=== PATIENT | female | born 1995 | race Caucasian/White ===

== ENCOUNTER 2016-10-10 02:01 | Emergency (ER) | payer OTHER ==
[2016-10-10] MEDS ORDERED: ONDANSETRON ODT 4 MG TABLET ONE (02:44)
[2016-10-10] MEDS: ONDANSETRON ODT 4 MG TABLET TL STA (02:45)
--- NOTE | 2016-10-10 02:47 | ED Physician Documentation ---
PD HPI NVD - Stated complaint Stated Complaint: VOMITING - Chief complaint Chief Complaint: Abd Pain - History obtained from History obtained from: Patient - History of Present Illness Timing - onset: Enter time (2330), Last night Timing - duration: Hours Timing - details: Gradual onset, Still present Associated symptoms: No: Fever, Abdominal pain, Chest pain, Hematemesis, Melena Contributing factors: Sick contact (girlfreind sick with simlar for several days ) Improved by: Vomiting Similar symptoms before: Has not had sx before Recently seen: Not recently seen - Additonal information Additional information: 20 y/o female has been caring for her girlfriend with vomiting and diarrhea for the past 4 days and tonight she became ill herself with vomiting and diarrhea. She has acute onset of symptoms tonight. Review of Systems Constitutional: reports: Myalgias, Fatigue, Sweats. denies: Fever Eyes: denies: Decreased vision Ears: denies: Ear pain Nose: denies: Congestion Throat: denies: Sore throat Cardiac: denies: Chest pain / pressure, Palpitations Respiratory: denies: Dyspnea, Cough GI: reports: Abdominal Pain, Nausea, Vomiting, Diarrhea : denies: Dysuria, Frequency Skin: denies: Rash Musculoskeletal: denies: Neck pain, Back pain, Extremity pain PD PAST MEDICAL HISTORY - Past Medical History Past Medical History: Yes Psych: Depression, Anxiety - Past Surgical History Past Surgical History: No - Present Medications Home Medications: Ambulatory Orders Medication Instructions Recorded Confirmed Ondansetron Odt [Zofran] 4 mg TL Q6H PRN #10 tablet 10/10/16 - Allergies Allergies/Adverse Reactions: Allergies Allergy/AdvReac Type Severity Reaction Status Date / Time No Known Drug Allergies Allergy Verified 02/22/15 10:10 - Social History Does the pt smoke?: Yes Smoking Status: Current every day smoker Does the pt drink ETOH?: Yes Does the pt have substance abuse?: Yes - Immunizations Immunizations are current?: Yes Immunizations: TDAP current <10years PD ED PE NORMAL - Vitals Vital signs reviewed: Yes (tachy and hypertensive ) - General General: No acute distress, Well developed/nourished - HEENT HEENT: Atraumatic, PERRL, EOMI - Neck Neck: Supple, no meningeal sign, No bony TTP - Cardiac Cardiac: No murmur, Other (tachy to 100) - Respiratory Respiratory: No respiratory distress, Clear bilaterally - Abdomen Abdomen: Soft, Non tender - Back Back: No CVA TTP, No spinal TTP - Derm Derm: Normal color, Warm and dry, No rash - Extremities Extremities: No deformity, No edema - Neuro Neuro: No motor deficit, No sensory deficit - Psych Psych: Normal mood, Normal affect Results - Vitals Vitals: Vital Signs - 24 hr 10/10/16 10/10/16 02:04 03:46 Temperature 36.9 C Heart Rate 107 H 88 Respiratory 16 17 Rate Blood Pressure 137/82 H 122/62 O2 Saturation 98 97 Oxygen O2 Source Room air - Labs Labs: Laboratory Tests 10/10/16 03:20 Urine Color YELLOW Urine Clarity CLEAR Urine pH 6.0 Ur Specific [place] <=1.005 Urine Protein NEGATIVE Urine Glucose (UA) NEGATIVE Urine Ketones NEGATIVE Urine Occult Blood SMALL H Urine Nitrite NEGATIVE Urine Bilirubin NEGATIVE Urine Urobilinogen 0.2 (NORMAL) Ur Leukocyte Esterase NEGATIVE Urine RBC None Seen Urine WBC 0-3 Ur Squamous Epith Cells NONE SEEN Urine Bacteria None Seen Ur Microscopic Review INDICATED Urine Culture Comments NOT INDICATED Urine HCG, Qual NEGATIVE Procedures - IVC sono (time) 0230 Bedside IVC sono: IVC measures (cm) (1.56), Euvolemia PD MEDICAL DECISION MAKING - ED course Complexity details: reviewed old records, reviewed results, re-evaluated patient , considered differential, d/w patient ED course: 20 y/o female with acute onset of vomiting and diarrhea after taking care of another person with similar symptoms does not appear dehydrated acutely and she is given TL zofran with improvement. Departure - Departure Disposition: 01 Home, Self Care Clinical Impression: Gastroenteritis Instructions: ED Gastroenteritis Viral Follow-Up: [facility] [Provider Group] Prescriptions: Ondansetron Odt [Zofran] 4 mg TL Q6H PRN #10 tablet PRN Reason: Nausea / Vomiting
[2016-10-10 03:26] LABS: BILIRUBIN,URINE NEGATIVE (NEGATIVE)
[2016-10-10] MEDS ORDERED: ONDANSETRON ODT 4 MG Prepack 2 TL ONE (03:43)
[2016-10-10 03:47] VITALS: BP 122/62
[2016-10-10 03:51] LABS: HCG UR QUAL NEGATIVE; UA w/ MICROSCOPIC CHARGE YES; UR CULTURE IF IND NOT INDICATED; WBC,URINE 0-3 /HPF (0-5)
[2016-10-10] MEDS: ONDANSETRON ODT 4 MG Prepack 2 TL PRN (03:53)
== END 2016-10-10 04:01 | disposition home or self-care (01) ==
LOC: ED 02:01
DX: K52.9 Noninfective gastroenteritis and colitis, unspecified (principal); F17.200 Nicotine dependence, unspecified, uncomplicated
CPT/HCPCS: 81001; 81003; 81025; 87086; 99283

== ENCOUNTER 2016-10-14 16:43 | Emergency (ER) | payer OTHER | END 2016-10-14 17:37 | disposition left against medical advice (07) | DX: Z53.21 Procedure and treatment not carried out due to patient leaving prior to being seen by health care provider (principal) ==

== ENCOUNTER 2016-10-26 05:09 | Emergency (ER) | payer OTHER | END 2016-10-26 15:55 | disposition home or self-care (01) | DX: F32.9 Major depressive disorder, single episode, unspecified (principal); R45.851 Suicidal ideations; F17.200 Nicotine dependence, unspecified, uncomplicated ==

== ENCOUNTER 2016-12-28 04:56 | Emergency (ER) | payer OTHER ==
[2016-12-28] MEDS ORDERED: MECLIZINE 12.5 MG TABLET PO STA (05:22)
[2016-12-28] MEDS ORDERED: ONDANSETRON 4 MG/2 ML VIAL IVP STA (05:22)
[2016-12-28] MEDS ORDERED: SODIUM CHLORIDE 0.9% 1,000 ML IV ONE ×2 (05:22→06:02)
[2016-12-28] MEDS ORDERED: ONDANSETRON 4 MG/2 ML VIAL ONE (05:23)
[2016-12-28] MEDS ORDERED: MECLIZINE 12.5 MG TABLET PO ONE (05:23)
--- NOTE | 2016-12-28 05:26 | ED Physician Documentation ---
PD HPI SYNCOPE - Stated complaint Stated Complaint: DIZZINESS - Chief complaint Chief Complaint: General - History obtained from History obtained from: Patient, Friend - History of Present Illness Timing - onset: How many hours ago (1-2 hours ago, felt lightheaded and fainted as she got up from lying down. Still feeling dizzy with head movement and lightheaded when stands up. Had been drinking alcohol and did cocaine last evening. Had not had anything to eat nor drink for the evening otherwise.) Duration: Minutes (friend says the patient was out for less than a minute ( more likely 20-30 seconds) and was able to talk when awoke. No noted injury to the head.) Preceding symptoms: Headache (mild general), Light headed, Generalized weakness. No: Palpitations, Diaphoresis, Dyspnea, Abdominal pain Associated symptoms: No: Seizure, Incontinant of urine, Chest pain, Abdominal pain Contributing factors: Just stood up, Other (had been drinking alcohol and using cocaine this past evening. Not had anything to eat nor drink otherwise.) Injury occurred: No: Head injury, Neck injury, Bit tongue Similar symptoms before: Has not had sx before Recently seen: Not recently seen Review of Systems Constitutional: denies: Fever, Chills Eyes: denies: Loss of vision, Photophobia Nose: denies: Rhinorrhea / runny nose, Congestion Throat: denies: Sore throat Respiratory: denies: Cough GI: denies: Abdominal Pain, Vomiting, Diarrhea : denies: Dysuria, Frequency Skin: denies: Abrasion (s), Laceration (s) Musculoskeletal: denies: Neck pain, Back pain Neurologic: denies: Focal weakness, Numbness Psychiatric: denies: Depressed Endocrine: denies: Weight loss Immunocompromised: denies: Immunocompromised PD PAST MEDICAL HISTORY - Past Medical History Past Medical History: Yes Cardiovascular: None Respiratory: None Neuro: None Endocrine/Autoimmune: None Psych: Depression, Anxiety - Past Surgical History Past Surgical History: No - Present Medications Home Medications: Ambulatory Orders Medication Instructions Recorded Confirmed Ondansetron Odt [Zofran] 4 mg TL Q6H PRN #10 tablet 10/10/16 - Allergies Allergies/Adverse Reactions: Allergies Allergy/AdvReac Type Severity Reaction Status Date / Time No Known Drug Allergies Allergy Verified 12/28/16 05:07 - Social History Does the pt smoke?: Yes Smoking Status: Current every day smoker Does the pt drink ETOH?: Yes Does the pt have substance abuse?: Yes - Immunizations Immunizations are current?: Yes Immunizations: TDAP current <10years - POLST Patient has POLST: No PD ED PE NORMAL - Vitals Vital signs reviewed: Yes - General General: Alert and oriented X 3, No acute distress, Well developed/nourished - HEENT HEENT: PERRL (mild nystagmus to sides on gaze. ), Ears normal, Pharynx benign. No: Moist mucous membranes - Neck Neck: Supple, no meningeal sign, No adenopathy - Cardiac Cardiac: RRR, No murmur - Respiratory Respiratory: Clear bilaterally - Back Back: No CVA TTP - Derm Derm: Normal color, Warm and dry - Extremities Extremities: No tenderness to palpate, Normal ROM s pain - Neuro Neuro: Alert and oriented X 3, ride operator 2-12 intact, No motor deficit, No sensory deficit, Normal speech - Psych Psych: Normal mood, Normal affect Results - Vitals Vitals: Vital Signs - 24 hr 12/28/16 05:03 Temperature 36.7 C Heart Rate 55 L Respiratory 17 Rate Blood Pressure 138/71 H O2 Saturation 97 Oxygen O2 Source Room air - Labs Labs: Laboratory Tests 12/28/16 05:24 POC Whole Bld Glucose 96 PD MEDICAL DECISION MAKING - ED course Complexity details: re-evaluated patient (Improved lightheadedness with 2 liters fluid. Less dizzy but still some after Meclizine. She was able to rest and sleep short while. ), considered differential (think most likely toxic effect of alcohol/cocaine with underhydration, so will give IV fluids and some meds for vertigo. ), d/w patient Departure - Departure Disposition: 01 Home, Self Care Clinical Impression: Dehydration, Dizziness Syncope Qualifiers: Syncope type: unspecified Qualified Code(s): R55 - Syncope and collapse Alcoholic intoxication Qualifiers: Complication of substance-induced condition: uncomplicated Qualified Code(s): F10.120 - Alcohol abuse with intoxication, uncomplicated Condition: Stable Record reviewed to determine appropriate education?: Yes Instructions: ED Dizziness Syncope Fainting W Pre Comments: Simple bland food today and adequate water/fluids for hydration. Get up slowly and move slowly this morning. I presume the dizziness and lightheadedness will improve slowly through the day. Recheck if not better into tomorrow. Samenol or Ibuprofen as needed for pains/headache. Forms: Activity restrictions
[2016-12-28 06:41] VITALS: BP 116/72
== END 2016-12-28 06:41 | disposition home or self-care (01) ==
LOC: ED 04:56
DX: E86.0 Dehydration (principal); R42 Dizziness and giddiness; R55 Syncope and collapse; F10.129 Alcohol abuse with intoxication, unspecified; F17.200 Nicotine dependence, unspecified, uncomplicated
CPT/HCPCS: 96361; 96374; 99283; A9270

== ENCOUNTER 2017-02-12 01:48 | Outpatient (CLI) | payer SELFPAY | END 2017-02-12 01:49 | disposition critical access hospital (66) | LOC: EMS 01:48 | PROVIDERS: ATTEND Surgery | DX: R40.4 Transient alteration of awareness (principal) | CPT/HCPCS: A0425; A0427 ==

== ENCOUNTER 2017-02-12 02:05 | Emergency (ER) | payer MEDICAID, OTHER ==
--- NOTE | 2017-02-12 02:18 | ED Physician Documentation ---
PD HPI ALTERED MENTAL STATUS - Stated complaint Stated Complaint: ALOC - Chief complaint Chief Complaint: Neuro - History obtained from History obtained from: Patient, EMS - History of Present Illness Timing - onset: Today Timing - duration: Other (unsure of duration - she was drinking and taking drugs with friend, who gave her some "Liliana". Patient apparently passed out and was not rousing, so friend called EMS. She was rousable to them but somewhat confused. Improved enroute to ER, with rousable and able to talk to Medics.) Timing - details: Abrupt onset Quality / character: Less responsive, Unresponsive Associated symptoms: No: Headache, NVD, Seizure activity Contributing factors: Intoxicated, Substance abuse. No: Diabetic, Recent illness, Recent injury Basline status: Alert and oriented X 3, Ambulatory Treatment SHOT FI[employer]MAN: Accucheck Similar symptoms before: Diagnosis (history of drug abuse and had been to ED in November for alcohol and cocaine use with altered mentation. Some prior visits before that similarly.) Review of Systems Throat: denies: Sore throat Cardiac: denies: Chest pain / pressure Respiratory: denies: Dyspnea, Cough GI: denies: Abdominal Pain, Vomiting, Diarrhea Skin: denies: Abrasion (s), Laceration (s) Neurologic: denies: Headache, Head injury Psychiatric: reports: Depressed, Anxiety. denies: Suicidal PD PAST MEDICAL HISTORY - Past Medical History Cardiovascular: None Respiratory: None Neuro: None Endocrine/Autoimmune: None Psych: Depression, Anxiety - Past Surgical History Past Surgical History: No - Present Medications Home Medications: Ambulatory Orders Medication Instructions Recorded Confirmed Ondansetron Odt [Zofran] 4 mg TL Q6H PRN #10 tablet 10/10/16 - Allergies Allergies/Adverse Reactions: Allergies Allergy/AdvReac Type Severity Reaction Status Date / Time No Known Drug Allergies Allergy Verified 12/28/16 05:07 - Social History Does the pt smoke?: Yes Smoking Status: Current every day smoker Does the pt drink ETOH?: Yes Does the pt have substance abuse?: Yes - Immunizations Immunizations are current?: Yes Immunizations: TDAP current <10years - POLST Patient has POLST: No PD ED PE NORMAL - Vitals Vital signs reviewed: Yes - General General: No acute distress, Well developed/nourished, Other (slightly somnolent but rouses to tactile. Able to answer questions. ) - HEENT HEENT: Atraumatic, Pharynx benign - Neck Neck: Supple, no meningeal sign, No adenopathy - Cardiac Cardiac: RRR, No murmur - Respiratory Respiratory: Clear bilaterally - Abdomen Abdomen: Soft, Non tender - Derm Derm: Normal color, Warm and dry - Neuro Neuro: Alert and oriented X 3, No motor deficit, Normal speech - Psych Psych: Normal mood, Normal affect Results - Vitals Vitals: Vital Signs - 24 hr 02/12/17 02/12/17 02:06 03:29 Temperature 36.6 C Heart Rate 106 H 98 Respiratory 16 20 Rate Blood Pressure 134/78 H 120/77 O2 Saturation 95 96 Oxygen O2 Source Room air - Labs Labs: Laboratory Tests 02/12/17 02/12/17 02:24 03:00 Sodium 143 Potassium 3.8 Chloride 113 H Carbon Dioxide 23 Anion Gap 7.0 BUN 8 Creatinine 0.7 Estimated GFR (MDRD) 104 Glucose 146 H Calcium 8.1 L Total Bilirubin 0.3 AST 19 ALT 14 Alkaline Phosphatase 44 Total Protein 7.2 Albumin 4.4 Globulin 2.8 Albumin/Globulin Ratio 1.6 Lipase 18 L Urine Opiates Screen NEGATIVE Ur Oxycodone Screen NEGATIVE Urine Methadone Screen NEGATIVE Ur Propoxyphene Screen NEGATIVE Ur Barbiturates Screen NEGATIVE Ur Tricyclics Screen NEGATIVE Ur Phencyclidine Scrn NEGATIVE Ur Amphetamine Screen POSITIVE H U Methamphetamines Scrn POSITIVE H U Benzodiazepines Scrn NEGATIVE Urine Cocaine Screen POSITIVE H U Cannabinoids Screen NEGATIVE Ethyl Alcohol 196.7 PD MEDICAL DECISION MAKING - ED course Complexity details: re-evaluated patient, considered differential (She is rousable easily and conversant on arrival to ED. Watched here for awhile to ensure not getting more altered. She feels better and is able to walk to bathroom. She is calling parents or trying to get a ride home. ), d/w patient Departure - Departure Disposition: 01 Home, Self Care Clinical Impression: Drug abuse, Drug side effects Alcoholic intoxication Qualifiers: Complication of substance-induced condition: uncomplicated Qualified Code(s): F10.120 - Alcohol abuse with intoxication, uncomplicated Condition: Stable Record reviewed to determine appropriate education?: Yes Instructions: ED Drug Abuse General, ED Alcohol Intoxication Comments: Avoid drugs and excess alcohol. Drink lots of fluids the next few days. Tylenol or Ibuprofen as needed for pains. Discharge Date/Time: 02/12/17 04:13
[2017-02-12] MEDS ORDERED: SODIUM CHLORIDE 0.9% 1,000 ML IV ONE (02:23)
[2017-02-12 02:54] LABS: ALBUMIN/GLOBULIN RATIO 1.6 (1.0-2.2); BILIRUBIN,TOTAL 0.3 mg/dL (0.2-1.0); CALCIUM 8.1 mg/dL (8.5-10.3); CREATININE 0.7 mg/dL (0.4-1.0); POTASSIUM 3.8 mmol/L (3.5-5.0); TOTAL PROTEIN 7.2 g/dL (6.7-8.2)
[2017-02-12 03:29] VITALS: BP 120/77
== END 2017-02-12 04:13 | disposition home or self-care (01) ==
LOC: EDUNIT# → ED 02:05
DX: F19.10 Other psychoactive substance abuse, uncomplicated (principal); T50.905A Adverse effect of unspecified drugs, medicaments and biological substances, initial encounter; F10.120 Alcohol abuse with intoxication, uncomplicated; F17.200 Nicotine dependence, unspecified, uncomplicated
CPT/HCPCS: 36415; 80053; 80306; 80320; 83690; 99283; 99284

== ENCOUNTER 2017-04-05 09:01 | Outpatient (CLI) | payer MEDICAID | END 2017-04-05 09:02 | disposition critical access hospital (66) | LOC: EMS 09:01 | PROVIDERS: ATTEND Surgery | DX: S61.512A Laceration without foreign body of left wrist, initial encounter (principal); X78.9XXA Intentional self-harm by unspecified sharp object, initial encounter | CPT/HCPCS: A0425; A0429 ==

== ENCOUNTER 2017-04-05 09:17 | Emergency (ER) | payer MEDICAID ==
[2017-04-05 09:53] LABS: BILIRUBIN,URINE NEGATIVE (NEGATIVE)
[2017-04-05 10:01] LABS: HCT - HEMATOCRIT 38.7 % (37.0-47.0); HGB - HEMOGLOBIN 13.5 g/dL (12.0-16.0); MEAN CORPUSCULAR HEMOGLOBIN 32.6 pg (27.0-31.0); MEAN CORPUSCULAR HGB CONC 34.8 g/dL (32.0-36.0); MEAN CORPUSCULAR VOLUME 93.6 fL (81.0-99.0); MEAN PLATELET VOLUME 6.9 fL (7.9-10.8); RED BLOOD COUNT 4.14 10^6/uL (4.20-5.40)
[2017-04-05 10:21] LABS: ALBUMIN/GLOBULIN RATIO 1.5 (1.0-2.2); BILIRUBIN,TOTAL 0.5 mg/dL (0.2-1.0); BUN - BLOOD UREA NITROGEN 8 mg/dL (6-20); CALCIUM 9.2 mg/dL (8.5-10.3); CARBON DIOXIDE - CO2 25 mmol/L (21-32); CHLORIDE 106 mmol/L (101-111); CREATININE 0.8 mg/dL (0.4-1.0); GFR - MDRD 89 (>89); GLUCOSE 113 mg/dL (70-100); LIPASE 19 U/L (22-51); POTASSIUM 3.8 mmol/L (3.5-5.0); SALICYLATE < 6.0 mg/dL; SODIUM 142 mmol/L (135-145); TOTAL PROTEIN 7.9 g/dL (6.7-8.2)
[2017-04-05 10:27] LABS: ACETAMINOPHEN < 10 ug/mL (10-30)
[2017-04-05 12:09] LABS: HCG UR QUAL NEGATIVE
--- NOTE | 2017-04-05 12:11 | ED Physician Documentation ---
PD HPI MHE - Stated complaint Stated Complaint: MHE - Chief complaint Chief Complaint: MHE - History obtained from History obtained from: Patient, Family - History of Present Illness Primary symptom: Suicidal ideation, Suicide attempt, Self harm - cut Timing - onset: Today Contributing factors: Family, Work, Substance abuse - ETOH Similar symptoms before: Diagnosis (depression and substance abuse) Recently seen: Not recently seen - Additional information Additional information: 21-year-old female with a prior history of substance abuse alcohol use and suicidal ideation was out last night and this morning is intoxicated and feels suicidal. She was at home and texted a friend that she was trying to hurt herself and they called 911. Patient is accompanied here today by her father. She lives in apartment with her father and mother. She is working as a professor of sociology. She started this job several days ago.She indicates a family history of alcoholism in her mother and she indicates that she has been in treatment previously. Review of Systems Constitutional: denies: Fever Eyes: denies: Decreased vision Ears: denies: Ear pain Nose: denies: Congestion Throat: denies: Sore throat Cardiac: denies: Chest pain / pressure, Palpitations Respiratory: denies: Dyspnea, Cough GI: denies: Abdominal Pain, Nausea, Vomiting, Constipation, Diarrhea : denies: Dysuria, Frequency Skin: denies: Rash Musculoskeletal: denies: Neck pain, Back pain, Extremity pain, Joint pain Neurologic: denies: Generalized weakness, Focal weakness, Numbness PD PAST MEDICAL HISTORY - Past Medical History Cardiovascular: None Respiratory: None Neuro: None Endocrine/Autoimmune: None Psych: Depression, Anxiety - Past Surgical History Past Surgical History: No - Present Medications Home Medications: Ambulatory Orders Medication Instructions Recorded Confirmed No Known Home Medications [No 04/05/17 04/05/17 Known Home Medications] - Allergies Allergies/Adverse Reactions: Allergies Allergy/AdvReac Type Severity Reaction Status Date / Time No Known Drug Allergies Allergy Verified 12/28/16 05:07 - Social History Does the pt smoke?: Yes Smoking Status: Current every day smoker Does the pt drink ETOH?: Yes Does the pt have substance abuse?: Yes Substance Use and Type: Cocaine/Crack - Immunizations Immunizations are current?: Yes Immunizations: TDAP current <10years - POLST Patient has POLST: No PD ED PE NORMAL - Vitals Vital signs reviewed: Yes - General General: Well developed/nourished, Other (The patient is teary-eyed and has flat affect.) - HEENT HEENT: Atraumatic, PERRL, EOMI, Ears normal, Moist mucous membranes, Pharynx benign - Neck Neck: Supple, no meningeal sign, No bony TTP - Cardiac Cardiac: RRR, No murmur - Respiratory Respiratory: No respiratory distress, Clear bilaterally - Abdomen Abdomen: Soft, Non tender - Back Back: No CVA TTP, No spinal TTP - Derm Derm: Normal color, Warm and dry, No rash - Extremities Extremities: No deformity, No edema - Neuro Neuro: Alert and oriented X 3, No motor deficit, No sensory deficit, Normal speech - Psych Psych: Other (mood is sad and the affect is flat ) Results - Vitals Vitals: Oxygen O2 Source Room air - Labs Labs: Laboratory Tests 04/05/17 04/05/17 04/05/17 09:30 09:30 09:39 WBC RBC Hgb Hct MCV MCH MCHC RDW Plt Count MPV Sodium Potassium Chloride Carbon Dioxide Anion Gap BUN Creatinine Estimated GFR (MDRD) Glucose Calcium Total Bilirubin AST ALT Alkaline Phosphatase Total Protein Albumin Globulin Albumin/Globulin Ratio Lipase Urine Color YELLOW Urine Clarity HAZY Urine pH 6.0 Ur Specific [place] 1.010 1.010 Urine Protein NEGATIVE Urine Glucose (UA) NEGATIVE Urine Ketones NEGATIVE Urine Occult Blood SMALL H Urine Nitrite NEGATIVE Urine Bilirubin NEGATIVE Urine Urobilinogen 0.2 (NORMAL) Ur Leukocyte Esterase SMALL H Urine HCG, Qual NEGATIVE Salicylates Urine Opiates Screen NEGATIVE Ur Oxycodone Screen NEGATIVE Urine Methadone Screen NEGATIVE Ur Propoxyphene Screen NEGATIVE Acetaminophen Ur Barbiturates Screen NEGATIVE Ur Tricyclics Screen NEGATIVE Ur Phencyclidine Scrn NEGATIVE Ur Amphetamine Screen NEGATIVE U Methamphetamines Scrn NEGATIVE U Benzodiazepines Scrn NEGATIVE Urine Cocaine Screen POSITIVE H U Cannabinoids Screen NEGATIVE Ethyl Alcohol Cancelled 04/05/17 04/05/17 04/05/17 09:50 09:50 13:37 WBC 7.0 RBC 4.14 L Hgb 13.5 Hct 38.7 MCV 93.6 MCH 32.6 H MCHC 34.8 RDW 13.0 Plt Count 302 MPV 6.9 L Sodium 142 Potassium 3.8 Chloride 106 Carbon Dioxide 25 Anion Gap 11.0 BUN 8 Creatinine 0.8 Estimated GFR (MDRD) 89 Glucose 113 H Calcium 9.2 Total Bilirubin 0.5 AST 26 ALT 16 Alkaline Phosphatase 43 Total Protein 7.9 Albumin 4.8 Globulin 3.1 Albumin/Globulin Ratio 1.5 Lipase 19 L Urine Color Urine Clarity Urine pH Ur Specific [place] Urine Protein Urine Glucose (UA) Urine Ketones Urine Occult Blood Urine Nitrite Urine Bilirubin Urine Urobilinogen Ur Leukocyte Esterase Urine HCG, Qual Salicylates < 6.0 Urine Opiates Screen Ur Oxycodone Screen Urine Methadone Screen Ur Propoxyphene Screen Acetaminophen < 10 L Ur Barbiturates Screen Ur Tricyclics Screen Ur Phencyclidine Scrn Ur Amphetamine Screen U Methamphetamines Scrn U Benzodiazepines Scrn Urine Cocaine Screen U Cannabinoids Screen Ethyl Alcohol 157.1 85.5 PD MEDICAL DECISION MAKING - ED course Complexity details: reviewed old records, reviewed results, re-evaluated patient , considered differential, d/w patient, d/w family ED course: 21-year-old female with a history of substance abuse to the emergency department intoxicated after a friend Called 911 when the patient texted her that she was trying to herself. She is intoxicated this morning still feeling suicidal and she has cocaine on her tox screen. She did not want me to mention this to her father. She did acknowledge alcohol use and does allow discussion of alcohol with her father.The patient is interested in hospitalization and an arrangement is made for a bed in crisis respite and she spends 2 days in the ED awaiting the bed to become available. Departure - Departure Disposition: 01 Home, Self Care Clinical Impression: Suicidal ideation Condition: Fair Instructions: ED Depression Comments: Go directly to the crisis center for further. If you do not go directly there or if you arrive with signs of intoxication, you might be denied admission and have to start all over again Discharge Date/Time: 04/07/17 13:25
[2017-04-05] MEDS ORDERED: ACETAMINOPHEN 325 MG TABLET PO STA (16:08)
[2017-04-05] MEDS ORDERED: ACETAMINOPHEN 325 MG TABLET PO ONE (16:15)
--- NOTE | 2017-04-05 20:14 | ED Physician Documentation ---
ED Addendum - Addendum Addendum: 04/05/17 20:[address] Nagel's note for H and P. Seen by [facility] REP. No bed available tonight. Plan to board overnight in ED for poss xfer to [place] in AM.
[2017-04-06] MEDS ORDERED: BACITRACIN OINT TOP ONE (09:05)
[2017-04-06] MEDS ORDERED: NICOTINE 21 MG PATCH TOP STA (20:24)
[2017-04-06] MEDS ORDERED: NICOTINE 21 MG PATCH TOP ONE (20:34)
--- NOTE | 2017-04-07 07:53 | ED Physician Documentation ---
History of Present Illness - Stated complaint Stated Complaint: MHE - Chief complaint Chief Complaint: MHE PD PAST MEDICAL HISTORY - Past Medical History Cardiovascular: None Respiratory: None Neuro: None Endocrine/Autoimmune: None Psych: Depression, Anxiety - Past Surgical History Past Surgical History: No - Present Medications Home Medications: Ambulatory Orders Medication Instructions Recorded Confirmed No Known Home Medications [No 04/05/17 04/05/17 Known Home Medications] - Allergies Allergies/Adverse Reactions: Allergies Allergy/AdvReac Type Severity Reaction Status Date / Time No Known Drug Allergies Allergy Verified 12/28/16 05:07 - Social History Does the pt smoke?: Yes Smoking Status: Current every day smoker Does the pt drink ETOH?: Yes Does the pt have substance abuse?: Yes Substance Use and Type: Cocaine/Crack - Immunizations Immunizations are current?: Yes Immunizations: TDAP current <10years - POLST Patient has POLST: No Results - Vitals Vitals: Vital Signs - 24 hr 04/06/17 04/07/17 15:24 08:20 Temperature 36.7 C 36.2 C L Heart Rate 51 L 63 Respiratory 14 16 Rate Blood Pressure 107/68 121/64 O2 Saturation 99 100 Oxygen O2 Source Room air - Labs Labs: Laboratory Tests 04/05/17 04/05/17 04/05/17 09:30 09:30 09:39 WBC RBC Hgb Hct MCV MCH MCHC RDW Plt Count MPV Sodium Potassium Chloride Carbon Dioxide Anion Gap BUN Creatinine Estimated GFR (MDRD) Glucose Calcium Total Bilirubin AST ALT Alkaline Phosphatase Total Protein Albumin Globulin Albumin/Globulin Ratio Lipase Urine Color YELLOW Urine Clarity HAZY Urine pH 6.0 Ur Specific [place] 1.010 1.010 Urine Protein NEGATIVE Urine Glucose (UA) NEGATIVE Urine Ketones NEGATIVE Urine Occult Blood SMALL H Urine Nitrite NEGATIVE Urine Bilirubin NEGATIVE Urine Urobilinogen 0.2 (NORMAL) Ur Leukocyte Esterase SMALL H Urine HCG, Qual NEGATIVE Salicylates Urine Opiates Screen NEGATIVE Ur Oxycodone Screen NEGATIVE Urine Methadone Screen NEGATIVE Ur Propoxyphene Screen NEGATIVE Acetaminophen Ur Barbiturates Screen NEGATIVE Ur Tricyclics Screen NEGATIVE Ur Phencyclidine Scrn NEGATIVE Ur Amphetamine Screen NEGATIVE U Methamphetamines Scrn NEGATIVE U Benzodiazepines Scrn NEGATIVE Urine Cocaine Screen POSITIVE H U Cannabinoids Screen NEGATIVE Ethyl Alcohol Cancelled 04/05/17 04/05/17 04/05/17 09:50 09:50 13:37 WBC 7.0 RBC 4.14 L Hgb 13.5 Hct 38.7 MCV 93.6 MCH 32.6 H MCHC 34.8 RDW 13.0 Plt Count 302 MPV 6.9 L Sodium 142 Potassium 3.8 Chloride 106 Carbon Dioxide 25 Anion Gap 11.0 BUN 8 Creatinine 0.8 Estimated GFR (MDRD) 89 Glucose 113 H Calcium 9.2 Total Bilirubin 0.5 AST 26 ALT 16 Alkaline Phosphatase 43 Total Protein 7.9 Albumin 4.8 Globulin 3.1 Albumin/Globulin Ratio 1.5 Lipase 19 L Urine Color Urine Clarity Urine pH Ur Specific [place] Urine Protein Urine Glucose (UA) Urine Ketones Urine Occult Blood Urine Nitrite Urine Bilirubin Urine Urobilinogen Ur Leukocyte Esterase Urine HCG, Qual Salicylates < 6.0 Urine Opiates Screen Ur Oxycodone Screen Urine Methadone Screen Ur Propoxyphene Screen Acetaminophen < 10 L Ur Barbiturates Screen Ur Tricyclics Screen Ur Phencyclidine Scrn Ur Amphetamine Screen U Methamphetamines Scrn U Benzodiazepines Scrn Urine Cocaine Screen U Cannabinoids Screen Ethyl Alcohol 157.1 85.5 PD MEDICAL DECISION MAKING - ED course ED course: assumed care 7 AM 04/07/17 per prior notes pt presented intoxicated and suicidal, plan to cut, also utox + cocaine [facility] to [facility] declining to authorize payment plan is now to try and get pt to a crisis respite bed went to see pt she is in bed, appears comfortable, speaking to crisis center intake states no new concerns and doing OK SW able to get pt a bed at [facility] and arranged for medicaid funded [employer] transport but then pts father said he could safely transport her and pt feels comfortable riding with him and promises she can stay safe during the ride and she is happy with this plan Departure - Departure Disposition: 01 Home, Self Care Clinical Impression: Suicidal ideation Condition: Fair Instructions: ED Depression Comments: Go directly to the crisis center for further. If you do not go directly there or if you arrive with signs of intoxication, you might be denied admission and have to start all over again
[2017-04-07 13:28] VITALS: BP 120/63
== END 2017-04-07 13:25 | disposition home or self-care (01) ==
LOC: EDUNIT# → ED 09:17
DX: R45.851 Suicidal ideations (principal); F10.920 Alcohol use, unspecified with intoxication, uncomplicated; F14.90 Cocaine use, unspecified, uncomplicated; Y90.6 Blood alcohol level of 120-199 mg/100 ml
CPT/HCPCS: 36415; 80053; 80306; 80307; 80320; 80329; 81003; 81025; 83690; 85027; 99284; 99285; A9270

== ENCOUNTER 2017-05-03 14:33 | Outpatient (CLI) | payer MEDICAID, OTHER ==
[2017-05-03 18:54] LABS: BASOPHILS # (AUTO) 0.1 10^3/uL (0.0-0.1); BASOPHILS % (AUTO) 1.8 %; EOSINOPHILS # (AUTO) 0.4 10^3/uL (0.0-0.7); EOSINOPHILS % (AUTO) 4.7 %; HCT - HEMATOCRIT 40.2 % (37.0-47.0); HGB - HEMOGLOBIN 13.5 g/dL (12.0-16.0); LYMPHOCYTES # (AUTO) 1.8 10^3/uL (1.5-3.5); LYMPHOCYTES % (AUTO) 22.8 %; MEAN CORPUSCULAR HEMOGLOBIN 32.1 pg (27.0-31.0); MEAN CORPUSCULAR HGB CONC 33.5 g/dL (32.0-36.0); MEAN PLATELET VOLUME 8.1 fL (7.9-10.8); MONOCYTES # (AUTO) 0.4 10^3/uL (0.0-1.0); MONOCYTES % (AUTO) 5.1 %; NEUTROPHILS # (AUTO) 5.2 10^3/uL (1.5-6.6); NEUTROPHILS % (AUTO) 65.6 %; RED BLOOD COUNT 4.19 10^6/uL (4.20-5.40); RED CELL DISTRIBUTION WIDTH 12.3 % (12.0-15.0); UNCORRECTED WHITE BLOOD COUNT 7.9 x10^3/uL; WHITE BLOOD COUNT 7.9 x10^3/uL (4.8-10.8)
[2017-05-03 19:14] LABS: ALBUMIN/GLOBULIN RATIO 1.5 (1.0-2.2); BILIRUBIN,TOTAL 0.6 mg/dL (0.2-1.0); BUN - BLOOD UREA NITROGEN 11 mg/dL (6-20); CALCIUM 9.8 mg/dL (8.5-10.3); CARBON DIOXIDE - CO2 25 mmol/L (21-32); CHLORIDE 107 mmol/L (101-111); CREATININE 0.9 mg/dL (0.4-1.0); GFR - MDRD 78 (>89); GLUCOSE 69 mg/dL (70-100); POTASSIUM 3.6 mmol/L (3.5-5.0); SODIUM 139 mmol/L (135-145); TOTAL PROTEIN 7.8 g/dL (6.7-8.2)
== END 2017-05-03 14:34 | disposition home or self-care (01) ==
LOC: LAB.N 14:33
PROVIDERS: ATTEND Physician Assistant Medical
DX: Z91.89 Other specified personal risk factors, not elsewhere classified (principal); Z79.899 Other long term (current) drug therapy; F41.1 Generalized anxiety disorder
CPT/HCPCS: 36415; 80053; 80178; 84443; 85025; 86803; 87389

== ENCOUNTER 2017-05-03 15:10 | Outpatient (CLI) | payer MEDICAID | END 2017-05-03 15:11 | disposition critical access hospital (66) | LOC: EMS 15:10 | PROVIDERS: ATTEND Surgery | DX: R55 Syncope and collapse (principal); R42 Dizziness and giddiness; R53.1 Weakness | CPT/HCPCS: A0425; A0427 ==

== ENCOUNTER 2017-05-03 15:31 | Emergency (ER) | payer MEDICAID ==
[2017-05-03] MEDS ORDERED: SODIUM CHLORIDE 0.9% 1,000 ML IV ONE (15:44)
--- NOTE | 2017-05-03 15:47 | ED Physician Documentation ---
PD HPI SYNCOPE - Stated complaint Stated Complaint: SYNCOPAL EPISODE - Chief complaint Chief Complaint: Neuro - History obtained from History obtained from: Patient, EMS - History of Present Illness Witnessed: Witnessed Timing - onset: Enter time (1450), Today Duration: Seconds Preceding symptoms: Vision changes Associated symptoms: Seizure Contributing factors: Noxious stimulae Similar symptoms before: Diagnosis (syncope) Recently seen: Clinic, Emergency Dept - Additional information Additional information: 21-year-old female with a history of alcoholism and substance abuse has recently become sober she is now on lithium and was at the clinic today getting her lithium level drawn when she had a syncopal episode. The patient has had syncopal episodes previously with blood draws and in route to the hospital while she was getting her IV started she was noted to be bradycardic on the monitor. She did not have a second 6 syncopal episode. The clinic staff noted the patient have a brief stiffening of her body or a brief seizure and she does not have seizure disorder. Review of Systems Constitutional: denies: Fever Eyes: denies: Decreased vision Ears: denies: Ear pain Nose: denies: Congestion Throat: denies: Sore throat Cardiac: denies: Chest pain / pressure, Palpitations Respiratory: denies: Dyspnea, Cough GI: denies: Abdominal Pain, Nausea, Vomiting, Constipation, Diarrhea : denies: Dysuria, Frequency Skin: denies: Rash Musculoskeletal: denies: Neck pain, Back pain, Extremity pain Neurologic: reports: Syncope, Seizure. denies: Generalized weakness, Focal weakness, Numbness PD PAST MEDICAL HISTORY - Past Medical History Past Medical History: Yes Cardiovascular: None Respiratory: None Neuro: None Endocrine/Autoimmune: None Psych: Depression, Anxiety - Past Surgical History Past Surgical History: No - Present Medications Home Medications: Ambulatory Orders Medication Instructions Recorded Confirmed Mcalester Carbonate 300 mg PO BID 05/03/17 05/03/17 - Allergies Allergies/Adverse Reactions: Allergies Allergy/AdvReac Type Severity Reaction Status Date / Time No Known Drug Allergies Allergy Verified 12/28/16 05:07 - Social History Does the pt smoke?: Yes Smoking Status: Current every day smoker Does the pt drink ETOH?: Yes Does the pt have substance abuse?: Yes - Immunizations Immunizations are current?: Yes Immunizations: TDAP current <10years - POLST Patient has POLST: No PD ED PE NORMAL - Vitals Vital signs reviewed: Yes (Normal) - General General: No acute distress, Well developed/nourished - HEENT HEENT: Atraumatic, PERRL, EOMI, Ears normal, Moist mucous membranes, Pharynx benign, Dentition benign - Neck Neck: Supple, no meningeal sign, No bony TTP, No JVD - Cardiac Cardiac: RRR, No murmur - Respiratory Respiratory: No respiratory distress, Clear bilaterally - Abdomen Abdomen: Soft, Non tender - Back Back: No CVA TTP, No spinal TTP - Derm Derm: Normal color, Warm and dry, No rash - Extremities Extremities: No deformity, No edema - Neuro Neuro: Alert and oriented X 3, 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, No motor deficit, No sensory deficit, Normal speech - Psych Psych: Normal mood, Normal affect Results - Vitals Vitals: Vital Signs - 24 hr 05/03/17 15:31 Temperature 36.5 C Heart Rate 65 Respiratory 18 Rate Blood Pressure 122/78 O2 Saturation 100 Oxygen O2 Source Room air Procedures - IVC sono (time) 1540 Bedside IVC sono: IVC measures (cm) (1.12), Dehydration (mild) PD MEDICAL DECISION MAKING - ED course Complexity details: reviewed old records, reviewed results, re-evaluated patient , considered differential, d/w patient ED course: 21-year-old female with a history of prior syncopal episodes related to phlebotomy has had a syncopal episode with phlebotomy and a brief seizure. This happened at a local clinic and the patient was having her lithium level drawn. The patient feels essentially well at this time and workup was not initiated. She does have some mild dehydration on interrogation of the inferior vena cava and the saline that is hanging from the ambulance is infused. Departure - Departure Disposition: 01 Home, Self Care Clinical Impression: Vasovagal syncope, Dehydration Condition: Stable Instructions: ED Syncope Vasovagal, ED Dehydration Follow-Up: [facility] [Provider Group]
[2017-05-03 16:12] VITALS: BP 105/64
== END 2017-05-03 16:17 | disposition home or self-care (01) ==
LOC: EDUNIT# → ED 15:31
DX: E86.0 Dehydration (principal); R55 Syncope and collapse; F41.1 Generalized anxiety disorder; Z79.899 Other long term (current) drug therapy; Z91.89 Other specified personal risk factors, not elsewhere classified; F17.200 Nicotine dependence, unspecified, uncomplicated
CPT/HCPCS: 36415; 80053; 80178; 84443; 85025; 86803; 87389; 99283; 99284